=== PATIENT | male | born 1980 | race Caucasian/White ===

== ENCOUNTER 2020-01-27 06:05 | Emergency (ER) | payer BC ==
[2020-01-27 06:17] VITALS: BP 153/88; PULSE 53; RESP 15; TEMP 97.5
[2020-01-27] MEDS ORDERED: KETOROLAC 60 MG/2 ML VIAL IM STA (06:33)
--- NOTE | 2020-01-27 06:36 | ED ---
General Adult HPI - General Chief complaint: Extremity Problem,Nontraumatic Stated complaint: R shoulder pain Time Seen by Provider: 01/27/20 06:15 Source: patient, RN notes reviewed, old records reviewed Mode of arrival: ambulatory Limitations: no limitations - History of Present Illness Initial comments: 39-year-old male patient presents to ED for chief complaint of right shoulder pain. Patient reports that he does lots of strenuous lifting with his job. Patient reports on Monday he began to have right shoulder pain with range of motion and has progressively gotten worse. Denies any falls or trauma. Denies any chest pain or shortness of breath. Denies any other areas of pain at this time. Systemic: Pt denies fatigue, fever/chills, rash. Pt denies weakness, night sweats, weight loss. Neuro: Pt denies headache, visual disturbances, syncope or pre-syncope. HEENT: Pt denies ocular discharge or irritation, otalgia, rhinorrhea, pharyngitis or notable lymphadenopathy. Cardiopulmonary: Pt denies chest pain, SOB, heart palpitations, dyspnea on exertion. Abdominal/GI: Pt denies abdominal pain, n/v/d. : Pt denies dysuria, burning w/ urination, frequency/urgency. Denies new onset urinary or bowel incontinence. Neuro: Pt denies new onset weakness, paresthesias. - Related Data Allergies Allergy/AdvReac Type Severity Reaction Status Date / Time No Known Allergies Allergy Verified 01/27/20 06:17 Review of Systems ROS Statement: Those systems with pertinent positive or pertinent negative responses have been documented in the HPI. ROS Other: All systems not noted in ROS Statement are negative. Past Medical History Past Medical History: No Reported History Additional Past Surgical History / Comment(s): right ankle/tendon Past Psychological History: No Psychological Hx Reported Smoking Status: Current every day smoker Past Alcohol Use History: None Reported Past Drug Use History: Marijuana General Exam - General Exam Comments Initial Comments: Constitutional: NAD, AOX3, Pt has pleasant affect. HEENT: NC/AT, trachea midline. External ears appear normal, without discharge. Mucous membranes moist. There is no scleral icterus. No pallor noted. Cardiopulmonary: RRR, no murmurs, rubs or gallops, no JVD noted. Lungs CTAB in anterior and posterior grier. No peripheral edema. Neuro: CN II-XII grossly intact. No nuchal rigidity. No raccon eyes, no sheffield sign. MSK: Anterior shoulder region mildly tender to palpation. Painful arc is positive, empty can test is positive right-sided. No skin changes. Active range of motion is intact but with discomfort. Neurovascularly intact. Radial pulse +2 bilaterally.. Limitations: no limitations Course Vital Signs 01/27/20 06:07 Temperature 97.5 F L Pulse Rate 53 L Respiratory 15 Rate Blood Pressure 153/88 O2 Sat by Pulse 99 Oximetry Medical Decision Making - Medical Decision Making 39-year-old male patient presented to ED for chief complaint right shoulder pain. 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 He is complaining of right shoulder pain which started over the weekend. Anterior shoulder region the subacromial bursa region is tender to palpation. No skin changes. Painful arc is positive. Empty can test is positive. Plain films displayed calcific tendinitis. Patient presentation consistent with overuse injury with possible component of bursitis. Patient was discharged with anti- inflammatories and recommended to follow up with orthopedics and PCP on an outpatient basis. Case discussed with Dr. Fleming. Disposition Clinical Impression: Shoulder sprain Disposition: HOME SELF-CARE Condition: Stable Instructions (If sedation given, give patient instructions): Shoulder Sprain (ED) Additional Instructions: Follow-up with primary care provider and orthopedic consult tomorrow. Wait at least 8 hours before taking ibuprofen. Use ibuprofen and tylenol as needed for pain. Continue gentle range of motion of shoulder. Return to ED if condition worsens. Is patient prescribed a controlled substance at d/c from ED?: No Referrals: None,Stated [Primary Care Provider] - 1-2 days Noel Balbuena DO [Medical Doctor] - 1-2 days
--- NOTE | 2020-01-27 06:50 | XR ---
EXAM: XR Right Shoulder Complete, 2 or More Views CLINICAL HISTORY: ITS.REASON XR Reason: shoulder pain TECHNIQUE: Two or more views of the right shoulder. COMPARISON: No relevant prior studies available. FINDINGS: Bones/joints: No acute fracture. No dislocation. Soft tissues: 1 cm calcification at the rotator cuff insertion site around the greater tuberosity of the humerus. IMPRESSION: Calcific tendinitis of the rotator cuff.
[2020-01-27] MEDS ORDERED: ACET/COD 300 MG/30 MG STARTER PACK 6 TAB BTL PO STA (06:52)
[2020-01-27] MEDS ORDERED: IBUPROFEN 600 MG STARTER PACK 4 TAB BTL PO STA (06:52)
--- NOTE | 2020-01-27 07:08 | ED ---
Disposition Clinical Impression: Shoulder sprain, Calcific tendinitis Disposition: HOME SELF-CARE Condition: Stable Instructions (If sedation given, give patient instructions): Shoulder Sprain (ED) Additional Instructions: Follow-up with primary care provider and orthopedic consult tomorrow. Wait at least 8 hours before taking ibuprofen. Use ibuprofen and tylenol as needed for pain. Continue gentle range of motion of shoulder. Return to ED if condition worsens. Is patient prescribed a controlled substance at d/c from ED?: No Referrals: Noel Balbuena, [Medical Doctor] - 1-2 days None,Stated [Primary Care Provider] - 1-2 days
== END 2020-01-27 07:16 | disposition home or self-care (01) ==
LOC: EC 06:05
DX: S43.401A Unspecified sprain of right shoulder joint, initial encounter (principal); M75.31 Calcific tendinitis of right shoulder; F17.200 Nicotine dependence, unspecified, uncomplicated; X50.1XXA Overexertion from prolonged static or awkward postures, initial encounter; Y92.69 Other specified industrial and construction area as the place of occurrence of the external cause; Y99.0 Civilian activity done for income or pay
CPT/HCPCS: 73030; 99284; 96372; J1885